=== PATIENT | male | born 1985 | race Caucasian/White ===

== ENCOUNTER 2018-10-12 23:42 | Emergency (ER) | payer SELFPAY ==
[~2018-10-12] VITALS: Ht 180.3 cm; Wt 124.7 kg
[2018-10-12 23:45] VITALS: BP_SYST 90
[2018-10-13] MEDS ORDERED: NACL 0.9% 1,000 ML IV ONE (00:15)
[2018-10-13] MEDS ORDERED: DIPH-TET-PERTUS Vaccine 0.5 ML VIAL (ADACEL) I.M. ONE (00:30)
[2018-10-13 00:40] LABS: CALCIUM 8.9 mg/dL (8.4-11.0); CREATININE 1.34 mg/dL (0.55-1.30); HEMATOCRIT 39.7 % (36-54); MEAN CORPUSCULAR HEMOGLOBIN 30 pg (27-31); MEAN CORPUSCULAR HGB CONC 33 % (32-36); MEAN CORPUSCULAR VOLUME 91 fL (79.0-98.0); PLATELET COUNT (AUTO) 362 K/uL (130-430); POTASSIUM 3.4 mmol/L (3.5-5.1); RED BLOOD CELL COUNT(AUTO) 4.38 MIL/uL (4.2-6.2); RED CELL DISTRIBUTION WIDTH 13.6 % (9.0-15.0); WHITE BLOOD COUNT (AUTO) 12.7 K/uL (4.8-10.8)
[2018-10-13 00:41] LABS: BASOPHILS # (AUTO) 0.1 K/uL (0.0-0.2); BASOPHILS % (AUTO) 0.9 % (0.0-2.0); EOSINOPHILS # (AUTO) 0.6 K/uL (0.0-0.4); LYMPHOCYTES # (AUTO) 4.4 K/uL (1.0-5.5); LYMPHOCYTES % (AUTO) 34.2 % (20.5-51.5); MONOCYTES # (AUTO) 0.7 K/uL (0.0-1.0); MONOCYTES % (AUTO) 5.2 % (1.7-9.3); NEUTROPHILS % (AUTO) 54.7 % (40.0-70.0)
[2018-10-13 00:46] LABS: ALBUMIN 3.6 g/dL (3.4-4.8); TOTAL BILIRUBIN 0.1 mg/dL (0.0-1.0)
[2018-10-13 06:39] VITALS: BP_SYST 140
== END 2018-10-13 06:39 | disposition home or self-care (01) ==
LOC: SED 23:42
DX: S81.811A Laceration without foreign body, right lower leg, initial encounter (principal); S60.512A Abrasion of left hand, initial encounter; S00.81XA Abrasion of other part of head, initial encounter; S80.212A Abrasion, left knee, initial encounter; S80.812A Abrasion, left lower leg, initial encounter; F10.129 Alcohol abuse with intoxication, unspecified; W26.8XXA Contact with other sharp object(s), not elsewhere classified, initial encounter; X58.XXXA Exposure to other specified factors, initial encounter; Y93.89 Activity, other specified; Y92.89 Other specified places as the place of occurrence of the external cause; Y99.8 Other external cause status
CPT/HCPCS: 36415; 80053; 85025; 90471; 90715; 99283; G0482; J7030

== ENCOUNTER 2021-12-11 20:01 | Emergency (ER) | payer SELFPAY ==
[~2021-12-11] VITALS: Ht 162.6 cm; Wt 117.9 kg
[2021-12-11 20:10] VITALS: BP_SYST 166
[2021-12-11] MEDS ORDERED: DEXAMETHASONE SOD PHOSPHATE 10 MG/ML VIAL ONE (20:55)
[2021-12-11] MEDS ORDERED: DEXAMETHASONE SOD PHOSPHATE 10 MG/ML VIAL IM ONE (21:00)
[2021-12-11 21:17] VITALS: BP_SYST 148
== END 2021-12-11 21:17 | disposition home or self-care (01) ==
LOC: SED 20:01
DX: L30.8 Other specified dermatitis (principal)
CPT/HCPCS: 96372; 99283; J1100

== ENCOUNTER 2024-04-16 19:26 | Emergency (ER) | payer MEDICAID ==
[~2024-04-16] VITALS: Ht 162.6 cm; Wt 97.5 kg
[2024-04-16 19:50] VITALS: BP_SYST 141; PULSE 107; RESP 16; TEMP 96.9; O2SAT 96
[2024-04-16] MEDS ORDERED: NAPR-690 PO (20:57)
[2024-04-16] MEDS ORDERED: CEPH-548 PO (21:25)
[2024-04-16] MEDS: cefTRIAXone 1 GM in LIDOCAINE 1%, 20 ML MDV 2.1 ML IM ONE (21:37)
[2024-04-16 21:38] VITALS: BP_SYST 141; PULSE 107; RESP 16; TEMP 96.9; O2SAT 96
== END 2024-04-16 22:01 | disposition home or self-care (01) ==
LOC: SED 19:26
DX: L03.113 Cellulitis of right upper limb (principal); Z79.899 Other long term (current) drug therapy; Z79.2 Long term (current) use of antibiotics
CPT/HCPCS: 99283; 96372; J0696; J2003